=== PATIENT | male | born 1970 ===

== ENCOUNTER 2016-06-20 17:25 | Emergency (ER) | payer OTHER ==
[2016-06-20 17:38] VITALS: TEMP 98.6; BMI 34.8
[2016-06-20 18:10] LABS: LEUKOCYTES/URINE NEG (NEGATIVE); NITRITE/URINE NEG (NEGATIVE); RBC/URINE 0-2 (0-2); URINE OCCULT BLOOD NEG (NEG/TRACE); WBC/URINE 0-2 (0-2)
[2016-06-20] MEDS ORDERED: IBUPROFEN 800 MG TAB PO ONE (18:20)
[2016-06-20] MEDS ORDERED: CYCLOBENZAPRINE 10 MG TAB PO ONE (18:20)
--- NOTE | 2016-06-20 18:20 | EDPRACDOC ---
- General Information Chief Complaint: Abdominal Pain Stated Complaint: RIGHT SIDE/RIB PAIN Time Seen by Provider: 06/20/16 18:14 Information Source: Patient Mode Of Arrival: Car Home Medications: Home Medications Cyclobenzaprine HCl [Flexeril] 10 mg PO TID PRN #20 tablet 06/20/16 Hydrocodone Bit/Acetaminophen [Hydrocodon-Acetaminophen 5-325] 1 tab PO Q6 PRN # 15 tab 06/20/16 Prednisone [Deltasone, Orasone] 40 mg PO DAILY 5 Days 06/20/16 Allergies/Adverse Reactions: Allergies Allergy/AdvReac Type Severity Reaction Status Date / Time No Known Allergies Allergy Verified 06/20/16 17:38 - History of Present Illness Onset: TODAY HPI: PT COMPLAINS OF SUDDEN ONSET OF "RIGHT SIDE PAIN" TODAY, STATES PAIN IS IN RIGHT LATERAL CHEST, SHARP AND STABBING, WORSE WITH MOVING, TWISTING, DEEP BREATH. PT DENIES RECENT ILLNESS OR INJURY, NO COUGH, FEVER OR CHILLS, NO SOBR. PT STATES TOOK TYLENOL AT HOME AND "PUT MUSCLE RUB" ON AREA WITHOUT RELIEF. Pain Location: Reports: RUQ Pain Context: Reports: Spontaneous Pain Severity: Severe Pain Quality: Reports: Sharp, Stabbing Pain Radiation: Reports: Chest Adult Abdominal History: Denies: Abdominal Surgery, Urolithiasis, Bowel Obstruction, Similar Pain (dx) Modifying Factors: improves with: Position, Movement Associated Signs & Symptoms: Denies: Nausea, Frequency, Hematuria, Vomiting, Hematemesis, Anorexia, Diarrhea, Melena, Dysuria, Fever, Urgency, Other, Chills Oral Intake: Normal Urinary Output: Normal ED Past Medical History - History Reviewed Yes Nurses notes reviewed and agree except as marked - Patient Medical History Cardiac History: Reports: Hypertension Psychological History: Denies: Depression - Social Medical History Smoking Status: Heavy tobacco smoker (5 or more cigarettes/day or daily pipe/ cigar) ETOH: None Substance Abuse: Illicit Drugs (THC) EDM Review of Systems - Review of Systems Constitutional: negative: Chills, Fever Eyes: negative: Blurred Vision, Double Vision Ears: negative: Drainage Throat: negative: Pain Nose: negative: Congestion, Discharge Respiratory: negative: Cough, Shortness of Breath, Wheezing Cardiovascular: negative: Chest Pain, Palpitations Gastrointestinal: negative: Diarrhea, Nausea, Pain, Vomiting Genitourinary: negative: Dysuria, Frequency Neurological: negative: Dizziness, Headache, Numbness, Weakness Musculoskeletal: Chestwall, Ribs Integumentary: No Symptoms Reported - Physical Exam Constitutional: Alert (Awake), No apparent distress Oriented to: Time, Person, Place Last recorded Vital Signs: Last Vital Signs Temp 98.6 F 06/20/16 17:36 Pulse 86 06/20/16 17:36 Resp 18 06/20/16 17:36 BP 171/89 06/20/16 17:36 Pulse Ox 96 06/20/16 17:36 Oxygen Pulse Oxygen Saturation 96 O2 Device Room Air Oxygen Flow Rate Fraction of Inspired Oxygen ( FIO2) - HEENT Head: Normal ( normocephalic) Eye Exam: Normal (PERRL, EOMI, Sclera white) Oropharynx: Normal (Pharynx:Moist without exudate,Gums-no swelling) Tympanic Membrane: Normal ENT EAC: Normal TMJ: Normal Nose: No Symptoms Reported (septum midline) Neck: Normal (FROM, trachea at midline) - Respiratory/Cardiovascular Respiratory: Normal - CTA (BBS clear to auscultation without adventitious sounds ) Cardiovascular: Normal (RRR without murmur, gallop or rub) - GI Auscultation: Normal (NABS) Palpation: Normal (Soft,No rebound or guarding, non distended) Tenderness: Non tender Hinds's Sign: Negative - Musculoskeletal Back: Normal (Non-Tender) Extremities: Normal (Normal tone, Pulses 2+ No cyanosis or edema, FROM) Musculoskeletal Comment: CHEST: RIGHT LATERAL CHEST WALL TTP, NO CREPITANCE, SUBCUT EMPHYSEMA - Integumentary Skin: Normal, Warm, Dry Lymphatics: Normal (no adenopathy) - Neurologic Memory Impaired: Normal Motor Function: Normal (Normal tone, Pulses 2+ No cyanosis or edema, FROM) Cranial Nerve: Normal (CN II-X11 intact sensation, strength 5/5) Cerebellar: Normal Mood Description: Normal Perception: Normal - Differential Diagnosis Pneumonia, Other (CHEST WALL PAIN) - Re-evaluation Re-evaluation 1 Re-evaluation Time: 19:07 (NO CHANGE, PT CLINICALLY EXHIBITS NO SIGNS/SYMPTOMS C /W PNEUMONIA, NO COUGH OR CONGESTION, NO FEVER OR CHILLS, PAIN IS VERY REPRODUCIBLE, SUSPECT CHEST WALL MUSCULOSKELETAL PAIN RATHER THAN PNEUMONIA) - Results Urine Color Pale yellow 06/20/16 17:45 Urine Clarity Clear 06/20/16 17:45 Urine pH 7.0 (5.0-8.0) 06/20/16 17:45 Ur Specific [place] 1.005 (1.003-1.035) 06/20/16 17:45 Urine Protein Neg (NEG/TRACE) 06/20/16 17:45 Urine Glucose (UA) Neg (NEGATIVE) 06/20/16 17:45 Urine Ketones Neg (NEGATIVE) 06/20/16 17:45 Urine Occult Blood Neg (NEG/TRACE) 06/20/16 17:45 Urine Nitrite Neg (NEGATIVE) 06/20/16 17:45 Urine Bilirubin Neg (NEGATIVE) 06/20/16 17:45 Urine Urobilinogen <2.0 MG/DL (0-1) 06/20/16 17:45 Ur Leukocyte Esterase Neg (NEGATIVE) 06/20/16 17:45 Urine RBC 0-2 (0-2) 06/20/16 17:45 Urine WBC 0-2 (0-2) 06/20/16 17:45 Ur Epithelial Cells Occ 06/20/16 17:45 Urine Bacteria Few (NEG/FEW) 06/20/16 17:45 Lab Results 06/20/16 17:45 Urine Color Pale yellow Urine Clarity Clear Urine pH 7.0 Ur Specific [place] 1.005 Urine Protein Neg Urine Glucose (UA) Neg Urine Ketones Neg Urine Occult Blood Neg Urine Nitrite Neg Urine Bilirubin Neg Urine Urobilinogen <2.0 Ur Leukocyte Esterase Neg Urine RBC 0-2 Urine WBC 0-2 Ur Epithelial Cells Occ Urine Bacteria Few - Diagnostic Imaging CXR Image interpreted by: Radiologist 06/20/16 19:06 CHEST 2 VIEW COMPARISON: None. FINDINGS: Vague focal infiltration demonstrated in the medial aspect right lower lobe. Appearance may suggest early pneumonia. Left lung is clear. No blunting of costophrenic angles. No pneumothorax. Normal heart size and pulmonary vascularity. Mediastinal contours appear intact. IMPRESSION: Focal infiltration in the right lung base suggesting pneumonia. Decision Time to Discharge: 19:08 - Departure Disposition: Home Condition: Stable Final Diagnosis: Right-sided chest wall pain Instructions: Chest Wall Pain Education/Counseling Given Regarding: Diagnosis, Treatment, Prognosis, Follow Up Referrals: Roldan Mack MD [Staff Physician] - One Week Prescriptions: New Cyclobenzaprine HCl [Flexeril] 10 mg PO TID PRN #20 tablet PRN Reason: Muscle Spasms Hydrocodone Bit/Acetaminophen [Hydrocodon-Acetaminophen 5-325] 1 tab PO Q6 PRN #15 tab PRN Reason: Pain Prednisone [Deltasone, Orasone] 40 mg PO DAILY 5 Days Forms: Excuse Note Additional Instructions: APPLY WARM COMPRESSES TO AFFECTED AREA 20 MINS AT A TIME 4 - 5 TIMES DAILY NEEDED FOR PAIN, RETURN TO THE ED FOR ANY WORSENING SYMPTOMS OR CONCERNS.
--- NOTE | 2016-06-20 18:34 | DIRPT ---
CLINICAL DATA: Sudden onset right-sided chest pain today. Pain began around 1400 hours while rising to get out of chair. EXAM: CHEST 2 VIEW COMPARISON: None. FINDINGS: Vague focal infiltration demonstrated in the medial aspect right lower lobe. Appearance may suggest early pneumonia. Left lung is clear. No blunting of costophrenic angles. No pneumothorax. Normal heart size and pulmonary vascularity. Mediastinal contours appear intact. IMPRESSION: Focal infiltration in the right lung base suggesting pneumonia. Electronically Signed By: Matt Dominguez M.D. On: 06/20/2016 18:31
[2016-06-20 19:37] VITALS: BP 159/94; PULSE 77
== END 2016-06-20 19:39 | disposition home or self-care (01) ==
LOC: ED 17:25
DX: R07.89 Other chest pain (principal); I10 Essential (primary) hypertension; F17.200 Nicotine dependence, unspecified, uncomplicated; F12.10 Cannabis abuse, uncomplicated; Z79.899 Other long term (current) drug therapy
CPT/HCPCS: 71020; 81001; 99283; J3490